=== PATIENT | female | born 1965 | race Hispanic/Latino ===

== ENCOUNTER 2018-01-23 22:57 | Emergency (ER) | payer OTHER ==
[2018-01-23] MEDS ORDERED: ONDANSETRON 4 MG/2 ML VIAL ONE (23:16)
[2018-01-23] MEDS ORDERED: NA CHLORIDE 0.9% 1,000 ML ONE (23:16)
[2018-01-23] MEDS ORDERED: MORPHINE 4 MG/ML SYR ONE (23:16)
[2018-01-23 23:30] LABS: Absolute Lymphocytes (CBC) 3.1 K/uL (0.7-4.9); Absolute Monocytes 0.5 K/uL (0.1-1.3); Absolute Neutrophil 4.6 K/uL (1.8-8.0); Basophils % 0.4 % (0-1.3); Eosinophils % 1.4 % (0-4.4); Hematocrit 39.7 % (36.0-45.0); Lymphocytes % 36.7 % (15.3-44.8); MCH 28.9 pg (27.0-35.0); MPV 9.9 fL (7.6-11.3); Monocytes % 6.5 % (3.3-12.3); RBC Red Blood Cell Count 4.73 M/uL (3.86-4.86)
[2018-01-23 23:45] LABS: ALT/SGPT 30 U/L (12-78); AST/SGOT 23 U/L (15-37); Albumin 4.2 g/dL (3.4-5.0); Alkaline Phosphatase 109 U/L (45-117); BUN Blood Urea Nitrogen 12 mg/dL (7-18); Bicarbonate 30 mmol/L (21-32); Bilirubin Direct < 0.1 mg/dL (0-0.2); Bilirubin Total 0.2 mg/dL (0.2-1.0); Glucose Level 103 mg/dL (74-106); Lipase 86 U/L (73-393); Potassium 3.8 mmol/L (3.5-5.1); Protein, Total 9.1 g/dL (6.4-8.2); Sodium Level 139 mmol/L (136-145)
[2018-01-23 23:46] LABS: Urine Blood TRACE (NEG); Urine Glucose NEGATIVE (NEG); Urine Protein NEGATIVE (NEG); Urine Specific Gravity <1.005 (1.005-1.030); Urine pH 5.5 (5.0-7.0)
[2018-01-23 23:47] LABS: Urine Bacteria 20-50 /HPF (<20); Urine Culture Reflex Order REFLEXED; Urine RBC NONE SEEN /HPF (NONE SEEN)
[2018-01-24] MEDS ORDERED: DICYCLOMINE HCL 10 MG CAP ONE ×2 (00:49→00:50)
--- NOTE | 2018-01-24 00:50 | EDPHYS ---
Physician Documentation [facility] Name: Nannette Roblero Age: 52 yrs Sex: Female : 1965 Arrival Date: 01/23/2018 Time: 22:58 Bed 24 Private MD: Malvin Bruno ED Physician Brian Todd HPI: 01/24 00:00 This 52 yrs old Female presents to ER via Ambulatory with complaints of pm1 Abdominal Pain. 00:00 The patient presents with abdominal pain in the right upper quadrant. Onset: The pm1 symptoms/episode began/occurred 1 week(s) ago. The symptoms radiate to right back. Associated signs and symptoms: Pertinent positives: dysuria, Vomit x 1, Pertinent negatives: chest pain, diarrhea, fever, headache, shortness of breath. The symptoms are described as achy. Modifying factors: The symptoms are alleviated by nothing, the symptoms are aggravated by nothing. Patient was seen at [place] ER 1 week ago for RUQ pain and vomiting. Patient had labs performed without any imaging. Patient discharged home with zofran. Patient with complaints of RUQ pain today with radiation to right flank. Today with onset of burning with urination. HOME VISITOR: 01/23 23:10 LMP N/A - bb Historical: - Allergies: 23:10 No Known Allergies; tl3 23:10 No Known Allergies; bb - Home Meds: 23:10 Zofran (as hydrochloride) 4 mg Oral tab every 8 hours [Active]; tl3 23:10 Zofran (as hydrochloride) 4 mg Oral tab [Active]; bb - PMHx: 23:10 None; tl3 23:10 None; bb - PSHx: 23:10 Tubal ligation; tl3 23:10 Tubal ligation; bb - Immunization history:: Adult Immunizations up to date, Adult Immunizations up to date. - Social history:: Smoking status: Patient/guardian denies using tobacco, Patient/guardian denies using alcohol, street drugs, Smoking status: Patient/guardian denies using tobacco, never smoked. - Ebola Screening: : No symptoms or risks identified at this time. ROS: 01/24 00:00 Constitutional: Negative for fever, chills, and weight loss, Eyes: Negative for injury, pm1 pain, redness, and discharge, ENT: Negative for injury, pain, and discharge, Neck: Negative for injury, pain, and swelling, Cardiovascular: Negative for chest pain, palpitations, and edema, Respiratory: Negative for shortness of breath, cough, wheezing, and pleuritic chest pain. MS/Extremity: Negative for injury and deformity, Skin: Negative for injury, rash, and discoloration, Neuro: Negative for headache, weakness, numbness, tingling, and seizure. Abdomen/GI: Positive for abdominal pain, vomiting, of the right upper quadrant, Negative for nausea, diarrhea, hematemesis. Back: Positive for flank pain, on the right. : Positive for burning with urination. Exam: 00:00 Constitutional: This is a well developed, well nourished patient who is awake, alert, pm1 and in no acute distress. Head/Face: Normocephalic, atraumatic. Eyes: Pupils equal round and reactive to light, extra-ocular motions intact. Lids and lashes normal. Conjunctiva and sclera are non-icteric and not injected. Cornea within normal limits. Periorbital areas with no swelling, redness, or edema. ENT: Nares patent. No nasal discharge, no septal abnormalities noted. Tympanic membranes are normal and external auditory canals are clear. Oropharynx with no redness, swelling, or masses, exudates, or evidence of obstruction, uvula midline. Mucous membranes moist. Neck: Trachea midline, no thyromegaly or masses palpated, and no cervical lymphadenopathy. Supple, full range of motion without nuchal rigidity, or vertebral point tenderness. No Meningismus. Chest/axilla: Normal chest wall appearance and motion. Nontender with no deformity. No lesions are appreciated. Cardiovascular: Regular rate and rhythm with a normal S1 and S2. No gallops, murmurs, or rubs. Normal PMI, no JVD. No pulse deficits. Respiratory: Lungs have equal breath sounds bilaterally, clear to auscultation and percussion. No rales, rhonchi or wheezes noted. No increased work of breathing, no retractions or nasal flaring. 00:00 Back: No spinal tenderness. No costovertebral tenderness. Full range of motion. Skin: Warm, dry with normal turgor. Normal color with no rashes, no lesions, and no evidence of cellulitis. MS/ Extremity: Pulses equal, no cyanosis. Neurovascular intact. Full, normal range of motion. 00:00 Abdomen/GI: Inspection: abdomen appears normal, Bowel sounds: normal, Palpation: soft, mild abdominal tenderness, in the right upper quadrant, mass, is not appreciated, rebound tenderness, is not appreciated, Indicators: McBurney's point is not tender, Reinoso's sign is negative. 00:00 Neuro: Orientation: is normal, Motor: is normal, moves all fours, Gait: is steady, at a normal pace, without difficulty. Vital Signs: 01/23 23:10 BP 179 / 98; Pulse 91; Resp 16 S; Temp 98.6(O); Pulse Ox 99% on R/A; Weight 52.16 kg bb (R); Height 5 ft. 2 in. (157.48 cm) (R); Pain 10/10; 01/24 00:20 BP 173 / 82; Pulse 71; Resp 18; Pulse Ox 98% ; Pain 4/10; tl3 00:57 BP 182 / 99; Pulse 67; Resp 18; Pulse Ox 100% ; tl3 01/23 23:10 Body Mass Index 21.03 (52.16 kg, 157.48 cm) bb MDM: 01/23 23:01 Patient medically screened. pm1 01/24 00:47 Data reviewed: vital signs. Data interpreted: Pulse oximetry: on room air is 98 %. pm1 Interpretation: normal. Counseling: I had a detailed discussion with the patient and/or guardian regarding: the historical points, exam findings, and any diagnostic results supporting the discharge/admit diagnosis, lab results, radiology results, the need for outpatient follow up, for definitive care, a general surgeon, to return to the emergency department if symptoms worsen or persist or if there are any questions or concerns that arise at home. 00:47 ED course: VRad Impression: Cholelithiasis, diverticulosis without diverticulitis, pm1 benign liver cyst. 18:02 ED course: pt contacted per charge nurse to see how pt is feeling. Pt well, sleeping in snw no distress and feeling generally better. Pt encouraged to f/u with general surgeon to eval gallbladder and to return to ER prn. 01/23 23:09 Order name: Basic Metabolic Panel; Complete Time: 23:51 pm1 01/23 23:09 Order name: CBC with Diff; Complete Time: 23:39 pm1 01/23 23:09 Order name: Creatinine for Radiology; Complete Time: 23:45 pm1 01/23 23:09 Order name: Hepatic Function; Complete Time: 23:51 pm1 01/23 23:09 Order name: Lipase; Complete Time: 23:51 pm1 01/23 23:09 Order name: Urine Microscopic Only; Complete Time: 23:51 pm1 01/23 23:09 Order name: CT Abd/Pelvis - W/Contrast: IV contrast only pm1 01/23 23:23 Order name: Urine Dipstick--Ancillary (enter results); Complete Time: 23:51 mt 01/23 23:49 Order name: Urine Culture EDMS 01/23 23:09 Order name: Urine Test (obtain specimen); Complete Time: 23:25 pm1 01/23 23:09 Order name: IV Saline Lock; Complete Time: 23:26 pm1 01/23 23:09 Order name: Labs collected and sent; Complete Time: 23:26 pm1 01/23 23:09 Order name: Urine Dipstick-Ancillary (obtain specimen); Complete Time: 23:26 pm1 Administered Medications: 01/23 23:24 Drug: morphine 4 mg Route: IVP; Infused Over: 3 mins; Site: right antecubital; tl3 01/24 00:22 Follow up: Response: No adverse reaction; Pain is decreased tl3 01/23 23:25 Drug: NS 0.9% 1000 ml Route: IV; Rate: 1000 ml; Site: right antecubital; Delivery: tl3 Primary tubing; 01/24 00:56 Follow up: IV Status: Completed infusion; IV Intake: 1000ml tl3 01/23 23:25 Drug: Zofran 4 mg Route: IVP; Infused Over: 2 mins; Site: right antecubital; tl3 01/24 00:22 Follow up: Response: No adverse reaction tl3 00:50 Drug: Bentyl 20 mg Route: PO; tl3 00:56 Follow up: Response: No adverse reaction tl3 00:56 Drug: Rocephin 1 grams Route: IV; Rate: calculated rate; Site: right antecubital; tl3 Delivery: Primary tubing; 00:56 Follow up: IV Status: Completed infusion; IV Intake: 20ml tl3 Disposition: 01:52 Co-signature as Attending Physician, Brian Todd MD. pkl Disposition: 01/24/18 00:49 Discharged to Home. Impression: Cholelithiasis, Urinary tract infection, site not specified. - Condition is Stable. - Discharge Instructions: Urinary Tract Infection, Cholelithiasis. - Prescriptions for Bentyl 20 mg Oral Tablet - take 1 tablet by ORAL route every 6 hours As needed; 20 tablet. Bactrim DS 800- 160 mg Oral Tablet - take 1 tablet by ORAL route every 12 hours for 10 days; 20 tablet. promethazine 25 mg Oral Tablet - take 1 tablet by ORAL route every 6 hours As needed; 20 tablet. Tylenol- Codeine #3 300-30 mg Oral Tablet - take 2 tablets by ORAL route every 6 hours As needed; 20 tablet. - Medication Reconciliation Form, Thank You Letter, Antibiotic Education, Prescription Opioid Use form. - Follow up: Emergency Department; When: As needed; Reason: Worsening of condition. Follow up: Sameer Calderon MD; When: 2 - 3 days; Reason: Recheck today's complaints, Continuance of care, Re-evaluation by your physician. - Problem is new. - Symptoms have improved. Signatures: Dispatcher [employer] EDMS Brian Todd MD MD pkl Merry Velazquez, CORPORATE SAFETY DIRECTOR-C CORPORATE SAFETY DIRECTOR-Csnw Cris Godoy, RN RN Hiro Cabello NP FUEL CONVERSION TECHNICIAN pm1 Fransisca Pelaez RN RN tl3 Corrections: (The following items were deleted from the chart) 00:47 00:47 Counseling: I had a detailed discussion with the patient and/or guardian pm1 regarding: the historical points, exam findings, and any diagnostic results supporting the discharge/admit diagnosis, lab results, radiology results, the need for outpatient follow up, to return to the emergency department if symptoms worsen or persist or if there are any questions or concerns that arise at home, pm1 01:10 00:49 01/24/2018 00:49 Discharged to Home. Impression: Cholelithiasis; Urinary tract tl3 infection, site not specified. Condition is Stable. Forms are Medication Reconciliation Form, Thank You Letter, Antibiotic Education, Prescription Opioid Use. Follow up: Emergency Department; When: As needed; Reason: Worsening of condition. Follow up: Sameer Calderon; When: 2 - 3 days; Reason: Recheck today's complaints, Continuance of care, Re-evaluation by your physician. Problem is new. Symptoms have improved. pm1
--- NOTE | 2018-01-24 00:50 | ER ---
Nurse's Notes [facility] Name: Nannette Roblero Age: 52 yrs Sex: Female : 1965 Arrival Date: 01/23/2018 Time: 22:58 Bed 24 Private MD: Malvin Bruno Diagnosis: Cholelithiasis;Urinary tract infection, site not specified Presentation: 01/23 23:07 Presenting complaint: Patient states: she was seen in [place] ED for abdominal pain last bb Monday and was given Zofran but she is still having abdominal pain with vomiting pt also has loose stools. Transition of care: patient was not received from another setting of care. Onset of symptoms was January 16, 2018. Risk Assessment: Do you want to hurt yourself or someone else? Patient reports no desire to harm self or others. Initial Sepsis Screen: Does the patient meet any 2 criteria? No. Patient's initial sepsis screen is negative. Does the patient have a suspected source of infection? No. Patient's initial sepsis screen is negative. Care prior to arrival: None. 23:07 Method Of Arrival: Ambulatory bb 23:07 Acuity: JOVANY 3 bb TREE CHIPPER: 23:10 LMP N/A - bb Historical: - Allergies: 23:10 No Known Allergies; tl3 23:10 No Known Allergies; bb - Home Meds: 23:10 Zofran (as hydrochloride) 4 mg Oral tab every 8 hours [Active]; tl3 23:10 Zofran (as hydrochloride) 4 mg Oral tab [Active]; bb - PMHx: 23:10 None; tl3 23:10 None; bb - PSHx: 23:10 Tubal ligation; tl3 23:10 Tubal ligation; bb - Immunization history:: Adult Immunizations up to date, Adult Immunizations up to date. - Social history:: Smoking status: Patient/guardian denies using tobacco, Patient/guardian denies using alcohol, street drugs, Smoking status: Patient/guardian denies using tobacco, never smoked. - Ebola Screening: : No symptoms or risks identified at this time. Screenin:10 Abuse screen: Denies threats or abuse. Nutritional screening: No deficits noted. tl3 Tuberculosis screening: No symptoms or risk factors identified. Fall Risk None identified. Assessment: 23:07 General: Appears in no apparent distress. comfortable, slender, well groomed, well tl3 developed, well nourished, Behavior is calm, cooperative, appropriate for age. Pain: Complains of pain in back and abdomen. Neuro: Level of Consciousness is awake, alert, obeys commands, Oriented to person, place, time, situation, Appropriate for age. Cardiovascular: Patient's skin is warm and dry. Respiratory: Airway is patent Respiratory effort is even, unlabored, Respiratory pattern is regular, symmetrical. GI: Bowel sounds present X 4 quads. Abd is soft Abdomen is tender to palpation in posterior aspect of right lateral abdomen and anterior aspect of right lateral abdomen Reports diarrhea, vomiting. : Reports burning with urination. EENT: No signs and/or symptoms were reported regarding the EENT system. Derm: No signs and/or symptoms reported regarding the dermatologic system. Musculoskeletal: No signs and/or symptoms reported regarding the musculoskeletal system. 01/24 00:20 Reassessment: Patient appears in no apparent distress at this time. No changes from tl3 previously documented assessment. Patient and/or family updated on plan of care and expected duration. Pain level reassessed. Patient is alert, oriented x 3, equal unlabored respirations, skin warm/dry/pink. pt returned from CT, IV infusing without difficulty, no needs at this time. 00:57 Reassessment: Patient is alert, oriented x 3, equal unlabored respirations, skin tl3 warm/dry/pink. Hiro at bedside to discuss POC. 17:48 Reassessment: Reassessment: Called to check on pt per Dr. Jarquin. Pt report feeling hb better. Instructed to return to ER if pain returns, and to be sure to follow up with surgeon as instructed at discharge. Pt verbalized understanding of instructions. Vital Signs: 01/23 23:10 BP 179 / 98; Pulse 91; Resp 16 S; Temp 98.6(O); Pulse Ox 99% on R/A; Weight 52.16 kg bb (R); Height 5 ft. 2 in. (157.48 cm) (R); Pain 04/18; 01/24 00:20 BP 173 / 82; Pulse 71; Resp 18; Pulse Ox 98% ; Pain 10/17; tl3 00:57 BP 182 / 99; Pulse 67; Resp 18; Pulse Ox 100% ; tl3 01/23 23:10 Body Mass Index 21.03 (52.16 kg, 157.48 cm) bb ED Course: 01/23 22:58 Patient arrived in ED. ds1 22:59 Malvin Bruno MD is Private Physician. ds1 23:01 Hiro Green NP is PHCP. pm1 23:01 Brian Tdod MD is Attending Physician. pm1 23:02 Fransisca Pelaez, HAYES is Primary Nurse. tl3 23:10 Triage completed. bb 23:10 Patient has correct armband on for positive identification. Bed in low position. Call tl3 light in reach. Side rails up X 1. Pulse ox on. NIBP on. 23:10 Arm band placed on Patient placed in an exam room, on a stretcher, on pulse oximetry. bb 23:10 No provider procedures requiring assistance completed. tl3 23:[address] via wheelchair. tl3 01/24 00:[address] via wheelchair. kw1 00:11 CT completed. Patient tolerated procedure well. Patient moved back from CT. kw1 00:14 CT Abd/Pelvis - W/Contrast: IV contrast only In Process Unspecified. EDMS 00:20 Door closed. Noise minimized. Lights dimmed. Warm blanket given. Pillow given. tl3 00:49 Sameer Calderon MD is Referral Physician. pm1 00:57 IV discontinued, intact, bleeding controlled, No redness/swelling at site. Pressure tl3 dressing applied. Administered Medications: 01/23 23:24 Drug: morphine 4 mg Route: IVP; Infused Over: 3 mins; Site: right antecubital; tl3 01/24 00:22 Follow up: Response: No adverse reaction; Pain is decreased tl3 01/23 23:25 Drug: NS 0.9% 1000 ml Route: IV; Rate: 1000 ml; Site: right antecubital; Delivery: tl3 Primary tubing; 01/24 00:56 Follow up: IV Status: Completed infusion; IV Intake: 1000ml tl3 01/23 23:25 Drug: Zofran 4 mg Route: IVP; Infused Over: 2 mins; Site: right antecubital; tl3 01/24 00:22 Follow up: Response: No adverse reaction tl3 00:50 Drug: Bentyl 20 mg Route: PO; tl3 00:56 Follow up: Response: No adverse reaction tl3 00:56 Drug: Rocephin 1 grams Route: IV; Rate: calculated rate; Site: right antecubital; tl3 Delivery: Primary tubing; 00:56 Follow up: IV Status: Completed infusion; IV Intake: 20ml tl3 Intake: 00:56 IV: 20ml; Total: 20ml. tl3 00:56 IV: 1000ml; Total: 1020ml. tl3 Outcome: 00:49 Discharge ordered by MD. pm1 00:57 Discharged to home ambulatory. tl3 00:57 Condition: stable 00:57 Discharge instructions given to patient, family, Instructed on discharge instructions, follow up and referral plans. medication usage, Demonstrated understanding of instructions, follow-up care, medications, Prescriptions given X 01:10 Patient left the ED. tl3 Signatures: Dispatcher [employer] EDOH Judy Navarro ds1 Cris Godoy RN RN bb Hiro Green NP SENIOR PRIVATE CLIENT ADVISOR pm1 Iliana Prieto RN RN Karime Weber 1 Fransisca Pelaez RN RN tl3 Corrections: (The following items were deleted from the chart) 17:51 17:48 Reassessment: hb hb
[2018-01-24] MEDS ORDERED: CEFTRIAXONE/SWI 1gm 1 GM/10 ML SYR ONE (00:55)
--- NOTE | 2018-01-24 09:10 | RAD REPORT ---
EXAM DESCRIPTION: CT - Abdomen Pelvis W Contrast - 01/24/2018 5:05 am CLINICAL HISTORY: Abdominal pain, vomiting. A preliminary written report was provided at the time of the study, and the report was reviewed prio r to final dictation. COMPARISON: None. TECHNIQUE: Biphasic, helical CT imaging of the abdomen and pelvis was performed following 100 ml non -ionic IV contrast. No oral contrast was given. All CT scans are performed using dose optimization technique as appropriate and may include automated exposure control or mA/KV adjustment according to patient size. FINDINGS: No suspicious findings in the lung bases. The liver, spleen, and pancreas show no suspicious findings. A small benign liver cyst is present. Mu ltiple 10 mm or less sized gallstones are identified. These are faintly calcified. There is subtle th ickening or edema of the gallbladder wall. No pericholecystic fluid. Biliary tree is not dilated. No peripancreatic edema or stranding. Symmetric renal function is seen with no hydronephrosis or suspicious renal mass. No pyelonephritis o r acute renal parenchymal process. No urinary bladder abnormality. The uterus and ovaries show no albert picious findings. A small hiatal hernia is present. No acute gastric or small bowel finding. Mild left-sided diverticul osis without diverticulitis. No free air, free fluid or other inflammatory stranding changes. No he rnia, mass or bulky lymphadenopathy. No adrenal abnormality. No suspicious bony findings. The gallbladder findings are more concerning than initially reflected in the preliminary [facility] re port. The discrepancy between the final report in the [facility] report telephoned to Merry in the em ergency department 5:45 p.m.. IMPRESSION: 1. Multi-stone cholelithiasis with questionable wall thickening or edema. No biliary reji e abnormality. Correlation is needed with any exam or lab findings of cholecystitis. 2. The remainder of the examination, as detailed above, without acute finding.
== END 2018-01-24 01:10 | disposition home or self-care (01) ==
LOC: ER 22:57
DX: K80.20 Calculus of gallbladder without cholecystitis without obstruction (principal); N39.0 Urinary tract infection, site not specified
CPT/HCPCS: 36415; 74177; 80048; 80076; 81003; 81015; 83690; 85025; 87077; 87086; 87088; 87186; 96361; 96374; 96375; 99284; J0696; J2405; J7030; Q9967